=== PATIENT | female | born 1995 | race Caucasian/White ===

== ENCOUNTER 2019-03-17 22:18 | Emergency (ER) | payer OTHER ==
[~2019-03-17] VITALS: Ht 165.1 cm; Wt 60.5 kg
[2019-03-17 22:39] VITALS: BP 152/88; TEMP 98
[2019-03-17] MEDS ORDERED: Birth Control (23:40)
[2019-03-18 00:25] VITALS: PULSE 86
== END 2019-03-18 00:25 | disposition home or self-care (01) ==
LOC: COL.ER 22:18
DX: S60.022A Contusion of left index finger without damage to nail, initial encounter (principal); J45.909 Unspecified asthma, uncomplicated; V89.2XXA Person injured in unspecified motor-vehicle accident, traffic, initial encounter